=== PATIENT | male | born 1945 | race Caucasian/White ===

== ENCOUNTER → 2016-06-24 | Outpatient (CLI) | payer MEDICARE, BC ==
[2015-08-23 09:58] VITALS: BP 135/70
[~2016-06-24] MED LIST: ASPI325T11 PO; ASPI81TA9 PO; ATOR20TA PO; BRIN10DR LEFTEYE; CLOP75TA27 PO; LATA2.5D2 EACHEYE; LISI10TA2 PO; SOTA120T14 PO; SOTA80TA PO
--- NOTE | 2016-06-24 11:26 | KCIC ---
PROCEDURE CT abdomen and pelvis without contrast. HISTORY Left flank pain x1 day, nausea. TECHNIQUE Helical CT imaging of the abdomen and pelvis is performed without IV or oral contrast. PQRS: One or more the following individualized dose reduction techniques were utilized for the study: 1. Automated exposure control. 2. Adjustment of the mA and/or kV according to patient size. 3. Use of iterative reconstruction technique. COMPARISON None. FINDINGS Evaluation of solid organs and bowel is limited without oral and IV contrast, decreasing sensitivity for detection of pathology. This is standard for renal stone protocol. Calcific aortic valve stenosis. Cardiac size normal. No pleural effusion. Atelectasis or scarring in the inferior lingula. There are numerous hepatic cysts, largest is segment 5/6 measuring 7 centimeters. The gallbladder, spleen, pancreas, adrenal glands, and abdominal aortic caliber are normal. There is cortical scarring of the bilateral kidneys. Small exophytic probable cyst lower pole of right kidney. There is bilateral perinephric stranding. Please note noncontrast CT is not sensitive for evaluation of pyelonephritis. There are lobulations of the bilateral kidneys. There is no renal, ureteral, or bladder calculus. No hydronephrosis. The bladder is not well seen due to beam hardening artifact from left hip arthroplasty. Bladder is not well distended accentuating the wall thickness. Stomach unremarkable. Small fat containing umbilical hernia. No dilated small bowel. Mild sigmoid colon diverticulosis without evidence of diverticulitis. No colon wall thickening is seen. The appendix is normal. No abdominal adenopathy or free fluid. The prostate is enlarged. No obvious pelvic free fluid. Bilateral L5 spondylolysis. There is minimal grade 1 anterolisthesis of L5 on S1 and L3 on L4. There is mild grade 1 retrolisthesis of L2 on L3. There is degenerative arthropathy of the right hip. IMPRESSION 1. No acute abdominal or pelvic abnormality. No obstructive uropathy. 2. Cortical scarring of the bilateral kidneys with prominent lobulations. Recommend further evaluation with renal ultrasound. 3. Numerous hepatic cysts. 4. Mild distal colon diverticulosis without evidence of diverticulitis. 5. Prostate is enlarged. Electronically signed by: Bry Murray MD (Jun 24, 2016 11:25:33)
== END | disposition home or self-care (01) ==
LOC: KCIC CT 09:50
DX: K57.30 Diverticulosis of large intestine without perforation or abscess without bleeding (principal); N40.0 Benign prostatic hyperplasia without lower urinary tract symptoms; K76.89 Other specified diseases of liver
CPT/HCPCS: 74176

== ENCOUNTER 2016-07-07 10:04 | Emergency (ER) | payer MEDICARE, BC ==
[~2016-07-07] VITALS: Ht 185.4 cm; Wt 111.6 kg
[~2016-07-07 10:04] MED LIST changes: -SOTA80TA PO; +SOTA80TA48 PO
--- NOTE | 2016-07-07 10:10 | PHYS DOC ---
Past Medical History Past Medical History: A-Fib, Hypertension Past Surgical History: Hip Replacement Alcohol Use: None Drug Use: None Adult General Chief Complaint Chief Complaint: NEURO SYMPTOMS/DEFICITS HPI HPI Patient is a 70 year old male who presents with slurred speech, facial droop, left-sided weakness since being found laying next to his bed at 9:30 this morning. Last known normal was 11:30 PM last night per the . EMS brought in the patient. Medications at this time are unknown. Patient follows commands but is unable to clearly answer questions, he is unsure of when his symptoms started. Records show the patient does have a history of stroke. Review of Systems Review of Systems unobtainable due to medical condition Allergies Allergies Allergies Coded Allergies Type Severity Reaction Last Updated Verified warfarin Allergy Intermediate hives 08/23/15 No Physical Exam Physical Exam Constitutional: Well developed, well nourished,obvious signs of stroke, slurred speech HENT: Normocephalic, atraumatic Eyes: PERRLA, Pt's gaze to the right but able to move past midline to left and then immediately returns to the R, R eye cover 2/2 to recent cataract surgery, when holding up two fingers, pt stated 1 finger held up when 2 was present in the R spectrum of vision, unable to specify for any other field Neck: Normal range of motion, no tenderness, supple, no stridor. [] Cardiovascular:Heart rate regular with regular rhythm Lungs & Thorax: Bilateral breath sounds clear to auscultation [] Abdomen: soft, no tenderness, no masses, no pulsatile masses. [] Skin: Warm, dry, no erythema, no rash. [] Extremities: No tenderness, no cyanosis, no clubbing, no edema. [] Neurologic:opens eyes on command, attempts to follow commands, pt has strong hamper maker machine on the R hand, no hamper maker machine on the left as arm is flaccid, some movement of the left LE but unable to hold off bed, pt wiggles toes, sensory noted in bilateral lower extremities, left facial droop, slurred speech. NIH of 16 Current Patient Data Vital Signs Vital Signs Date Time Temp Pulse Resp B/P Pulse Ox O2 Delivery O2 Flow Rate FiO2 07/07/16 10:04 98.3 78 16 188/89 94 Room Air 98.3 Lab Values Laboratory Tests Test 07/07/16 10:07 Glucose (Fingerstick) 102mg/dL (70-99) H EKG EKG 83 bpm, sinus, normal axis, QTC 506, no ST elevation or depression, T wave inverted III, interpreted by me[] Radiology/Procedures Radiology/Procedures CT head: Indication acute onset of left hemiparesis. Code stroke. Noncontrast images of the head were obtained. A critical results were communicated to Dr. Duncan, in the emergency room, at the time of dictation. Note is made of a previous examination 04/12/2014. The calvarium appears unremarkable. The visualized paranasal sinuses appear normal. There is thrombus in the M1 segment of the right middle cerebral artery. In the right middle cerebral artery distribution there are changes compatible with acute or subacute bland infarction. There is diminished delineation of the koch-white junction. There is mild generalized edema and slight effacement of the right lateral ventricle. No hemorrhage is seen. There is no evidence of subdural or epidural hematoma. IMPRESSION: Thrombus in the M1 segment of the right middle cerebral artery with changes compatible with bland infarction in a large distribution of the right middle cerebral artery CXR: Indication CVA. Protocol study. A single view of the chest was obtained. Comparison is made to an examination 04/12/2014. The heart and pulmonary vessels appear normal. The lungs are clear of acute infiltrates. Significant pleural fluid is not seen. There is no pneumothorax. A significant change compared to the previous exam is not seen. IMPRESSION: No acute finding. No significant change Course & Med Decision Making Course & Med Decision Making Pertinent Labs and Imaging studies reviewed. (See chart for details) She activated as a code stroke upon arrival, onset of symptoms appear to be up to approximately 10-11 hours prior to arrival. CT head shows right MCA infarct , rectal aspirin was given. I talked with Dr. Arnold at , on-call neurologist. She accepted this patient for emergent transfer to the ICU with plans to perform CTA CTP. Talked with the family and explained to them the reason for transfer and they were agreeable. The patient may be out of the window for any endovascular retrieval of clots but this is the patient's best chance for possible reversal of symptoms. Patient transferred via EMS emergently. Dragon Disclaimer Dragon Disclaimer This electronic medical record was generated, in whole or in part, using a voice recognition dictation system. Departure Departure Impression: Primary Impression: Acute ischemic right MCA stroke Disposition: 05 TRANSFER OTHER Condition: CRITICAL Referrals: VIRI CHRISTIANSEN MD (PCP) MAYELIN DUNCAN MD July 07, 2016 10:10
--- NOTE | 2016-07-07 10:36 | RAD ---
Indication acute onset of left hemiparesis. Code stroke. Noncontrast images of the head were obtained. A critical results were communicated to Dr. Russell, in the emergency room, at the time of dictation. Note is made of a previous examination 04/12/2014. The calvarium appears unremarkable. The visualized paranasal sinuses appear normal. There is thrombus in the M1 segment of the right middle cerebral artery. In the right middle cerebral artery distribution there are changes compatible with acute or subacute bland infarction. There is diminished delineation of the koch-white junction. There is mild generalized edema and slight effacement of the right lateral ventricle. No hemorrhage is seen. There is no evidence of subdural or epidural hematoma. IMPRESSION: Thrombus in the M1 segment of the right middle cerebral artery with changes compatible with bland infarction in a large distribution of the right middle cerebral artery PQRS Compliance Statement: One or more of the following individualized dose reduction techniques were utilized for this examination: 1. Automated exposure control 2. Adjustment of the mA and/or kV according to patient size 3. Use of iterative reconstruction technique
--- NOTE | 2016-07-07 10:38 | RAD ---
Indication CVA. Protocol study. A single view of the chest was obtained. Comparison is made to an examination 04/12/2014. The heart and pulmonary vessels appear normal. The lungs are clear of acute infiltrates. Significant pleural fluid is not seen. There is no pneumothorax. A significant change compared to the previous exam is not seen. IMPRESSION: No acute finding. No significant change
[2016-07-07 10:39] LABS: BASO % 0 % (0-3); EOS % 0 % (0-3); HEMATOCRIT 40.9 % (39.0-53.0); HEMOGLOBIN 13.6 g/dL (13.0-17.5); LYMPH # 1.2 x10^3/uL (1.0-4.8); LYMPH % 10 % (24-48); MEAN CORPUSCULAR HEMOGLOBIN 30 pg (25-35); MEAN CORPUSCULAR HGB CONC 33 g/dL (31-37); MEAN CORPUSCULAR VOLUME 89 fL (79-100); MONO % 5 % (0-9); NEUT % 85 % (31-73); PLATELET COUNT 299 x10^3/uL (140-400); RED BLOOD COUNT 4.59 x10^6/uL (4.30-5.70); WHITE BLOOD COUNT 11.9 x10^3/uL (4.0-11.0)
[2016-07-07 10:42] LABS: CALCIUM 8.6 mg/dL (8.5-10.1); CREATININE 1.3 mg/dL (0.7-1.3); GFR 54.7; POTASSIUM 4.4 mmol/L (3.5-5.1)
[2016-07-07 10:44] VITALS: BP 165/79
[2016-07-07] MEDS ORDERED: ASPIRIN 300 MG SUPP.RECT PR ONE (10:45)
[2016-07-07 10:48] LABS: DIRECT BILIRUBIN 0.2 mg/dL (0.0-0.2); TOTAL BILIRUBIN 0.7 mg/dL (0.2-1.0)
--- NOTE | 2016-07-07 10:49 | EKG ---
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
[2016-07-07 10:57] LABS: INR 1.2 (0.8-1.1); PROTHROMBIN TIME PATIENT 14.3 SEC (11.7-14.0)
== END 2016-07-07 10:57 | disposition short-term general hospital (02) ==
LOC: ER 10:04
DX: I63.9 Cerebral infarction, unspecified (principal); R29.810 Facial weakness; G81.94 Hemiplegia, unspecified affecting left nondominant side; R47.81 Slurred speech; I10 Essential (primary) hypertension; I48.91 Unspecified atrial fibrillation; Z96.649 Presence of unspecified artificial hip joint; Z88.8 Allergy status to other drugs, medicaments and biological substances
CPT/HCPCS: 36415; 70450; 71010; 80048; 80076; 82947; 85027; 85610; 85730; 93005; 99285-25